=== PATIENT | female | born 1955 | race Asian ===

== ENCOUNTER 2021-01-14 10:40 | Outpatient (CLI) | payer BC | END 2021-01-14 10:41 | disposition home or self-care (01) | LOC: CSHCT 10:40 | PROVIDERS: ATTEND Urology | DX: R31.29 Other microscopic hematuria (principal); N20.0 Calculus of kidney | CPT/HCPCS: 74178 ==

== ENCOUNTER 2023-01-11 14:03 | Outpatient (CLI) | payer BC | END 2023-01-11 14:04 | disposition home or self-care (01) | LOC: CSHMAMMO 14:03 | PROVIDERS: ATTEND Family Medicine | DX: Z12.31 Encounter for screening mammogram for malignant neoplasm of breast (principal); M81.0 Age-related osteoporosis without current pathological fracture; M85.89 Other specified disorders of bone density and structure, multiple sites | CPT/HCPCS: 77063; 77067; 77080 ==